=== PATIENT | female | born 1990 | race Two or more races ===

== ENCOUNTER 2022-09-03 15:40 | Inpatient (IN) | payer OTHER ==
[2022-09-03 17:08] VITALS: BMI 35.9
[2022-09-03] MEDS: ELECTROLYTE-148 SOLN 1,000 ML IV SCH (18:00)
[2022-09-03] MEDS ORDERED: DINOPROSTONE 10 MG VAGINAL SUPPOSITORY VG ONE (18:04)
[2022-09-03] MEDS ORDERED: BUTORPHANOL TARTRATE 1 MG/ML VIAL IVPUSH ONE (18:05)
[2022-09-03] MEDS ORDERED: PROMETHAZINE HCL 25 MG/1 ML VIAL IVPUSH ONE (18:06)
[2022-09-03 19:39] LABS: BASO % 0.4 % (0-2.0); EOS % 0.9 % (0-4.5); HEMATOCRIT 33.9 % (32.4-45.2); HEMOGLOBIN 11.5 GM/dL (10.7-15.3); LYMPH % 24.6 % (8-40); MCH 27.5 pg (25.7-33.7); MEAN PLT VOLUME 8.1 fl (7.5-11.1); MONO % 8.3 % (3.8-10.2); NEUT % 65.8 % (42.8-82.8); PLATELET COUNT 241 10^3/uL (134-434); RBC 4.18 M/mm3 (3.60-5.2); RDW 15.6 % (11.6-15.6); WHITE BLOOD COUNT 6.4 K/mm3 (4.0-10.0)
[2022-09-03 19:54] LABS: PROTHROMBIN TIME (PATIENT) 11.5 SEC (9.7-13.0)
[2022-09-03 19:56] LABS: CALCIUM 8.5 mg/dL (8.5-10.1)
[2022-09-03 19:57] LABS: ACTIVATED PTT 26.2 SECONDS (25.2-36.5); BLOOD UREA NITROGEN 6.1 mg/dL (7-18)
[2022-09-03 20:00] LABS: CREATININE 0.6 mg/dL (0.55-1.3)
[2022-09-04] MEDS: ELECTROLYTE-148 SOLN 1,000 ML IV SCH (01:05)
[2022-09-04] MEDS ORDERED: AMPICILLIN SODIUM 2 GM VIAL ONE (06:25)
[2022-09-04] MEDS ORDERED: AMPICILLIN - 2 GM in SODIUM CHLORIDE 100 ML IVPB ONE (06:30)
[2022-09-04] MEDS ORDERED: OXYTOCIN 30 UNITS in 0.9% NS 30 UNIT/500 ML INFUS.BAG IVPB SCH (06:30)
[2022-09-04] MEDS ORDERED: OXYTOCIN 30 UNITS in 0.9% NS 30 UNIT/500 ML INFUS.BAG IVPB ONE (06:33)
[2022-09-04] MEDS: AMPICILLIN - 1 GM in SODIUM CHLORIDE 100 ML IVPB SCH ×3 (10:30→21:22)
[2022-09-04] MEDS ORDERED: AMPICILLIN SODIUM 1 GM VIAL ONE (10:55)
[2022-09-04] MEDS ORDERED: CITRIC ACID/SODIUM CITRATE 30 ML UNIT-DOSE CUP PO ONE (14:39)
[2022-09-04] MEDS ORDERED: FENTANYL CITRATE/PF 50 MCG/ML VIAL ONE (14:54)
[2022-09-04] MEDS ORDERED: ACETAMINOPHEN INJECTION 100 ML IVPB ONE (16:13)
[2022-09-04] MEDS ORDERED: METHYLERGONOVINE MALEATE 0.2 MG/1 ML AMP IM PRN (16:33)
[2022-09-04] MEDS ORDERED: SIMETHICONE 80 MG TAB.CHEW (FP) PO PRN (16:33)
[2022-09-04] MEDS ORDERED: ACETAMINOPHEN 325 MG TABLET (FP) PO PRN (16:33)
[2022-09-04] MEDS ORDERED: IBUPROFEN 600 MG TABLET (FP) PO PRN (16:33)
[2022-09-04] MEDS ORDERED: IBUPROFEN 800 MG/8 ML IJ IVPB PRN (16:39)
[2022-09-04] MEDS ORDERED: ACETAMINOPHEN 1000 MG/100 ML BAG IVPB PRN (16:40)
[2022-09-04] MEDS ORDERED: ONDANSETRON 4 MG/2 ML VIAL IVPB PRN (16:41)
[2022-09-04] MEDS: OXYTOCIN 20 UNITS in 0.9% NS 20 UNIT/1,000 ML INFUS.BAG IV SCH (17:30)
[2022-09-04 17:42] LABS: CORD HCO3 25.8 mmHg (20-29); CORD PCO2 58.4 mmHg (30-78); CORD pH 7.263 (7.14-7.44)
[2022-09-04 17:44] LABS: CORD BASE EXCESS -1.1 mmol/L (0-2); CORD HCO3 26.1 mmHg (20-29); CORD PCO2 52.6 mmHg (30-78); CORD pH 7.314 (7.14-7.44)
[2022-09-04] MEDS ORDERED: OXYTOCIN 20 UNITS in 0.9% NS 20 UNIT/1,000 ML INFUS.BAG IV ONE (18:39)
[2022-09-05] MEDS: OXYTOCIN 20 UNITS in 0.9% NS 20 UNIT/1,000 ML INFUS.BAG IV SCH (01:17)
[2022-09-05] MEDS: AMPICILLIN - 1 GM in SODIUM CHLORIDE 100 ML IVPB SCH ×2 (02:38→12:09)
[2022-09-05] MEDS ORDERED: oxyCODONE HCL 5 MG TABLET PO PRN ×2 (04:33)
[2022-09-05 09:52] LABS: BASO % 0.3 % (0-2.0); EOS % 0.1 % (0-4.5); HEMATOCRIT 32.9 % (32.4-45.2); HEMOGLOBIN 11.2 GM/dL (10.7-15.3); LYMPH % 9.6 % (8-40); MCH 27.5 pg (25.7-33.7); MCHC 33.9 g/dl (32.0-36.0); MEAN CELL VOLUME 80.9 fl (80-96); MEAN PLT VOLUME 8.1 fl (7.5-11.1); MONO % 6.8 % (3.8-10.2); NEUT % 83.2 % (42.8-82.8); PLATELET COUNT 205 10^3/uL (134-434); RBC 4.07 M/mm3 (3.60-5.2); RDW 15.6 % (11.6-15.6); WHITE BLOOD COUNT 10.1 K/mm3 (4.0-10.0)
[2022-09-05] MEDS ORDERED: BISACODYL 10 MG SUPP.RECT RC PRN (16:33)
[2022-09-06 20:22] VITALS: RESP 18
[2022-09-07 08:10] LABS: BASO % 0.5 % (0-2.0); EOS % 3.3 % (0-4.5); HEMATOCRIT 29.3 % (32.4-45.2); MCH 27.9 pg (25.7-33.7); MCHC 34.2 g/dl (32.0-36.0); MEAN CELL VOLUME 81.5 fl (80-96); MEAN PLT VOLUME 7.9 fl (7.5-11.1); MONO % 6.4 % (3.8-10.2); NEUT % 71.8 % (42.8-82.8); PLATELET COUNT 225 10^3/uL (134-434); RDW 15.8 % (11.6-15.6); WHITE BLOOD COUNT 7.5 K/mm3 (4.0-10.0)
[2022-09-07 10:49] VITALS: BP 121/75; PULSE 84; TEMP 98
== END 2022-09-07 14:45 | disposition home or self-care (01) | DRG 540 ==
LOC: JLDR 15:40 → J3W 09-04 20:19
PROVIDERS: ADMIT Family Medicine; ATTEND Family Medicine
PROC: 3E0P7VZ Introduction of Hormone into Female Reproductive, Via Natural or Artificial Opening (ICD-10-PCS; 2022-09-03)
PROC: 10D00Z1 Extraction of Products of Conception, Low, Open Approach (ICD-10-PCS; principal; 2022-09-04)
DX: O48.0 Post-term pregnancy (principal); O34.211 Maternal care for low transverse scar from previous cesarean delivery; O61.0 Failed medical induction of labor; Z3A.40 40 weeks gestation of pregnancy; Z37.0 Single live birth
CPT/HCPCS: 36415; 36600; 80048; 82803; 85025; 85610; 85730; 86780; 86850; 86900; 86901; 88307-TC; C9803-CS; U0003; U0005